=== PATIENT | female | born 1985 | race African-American/Black ===

== ENCOUNTER 2016-10-23 15:48 | Emergency (ER) | payer OTHER ==
[~2016-10-23] VITALS: Ht 157.5 cm; Wt 17.2 kg
[~2016-10-23 15:48] MED LIST: ACETAMINOPHEN325 M1; ACID CONTROL150 MG; ADVIL100 M2; ADVIL200 M2 PO; BACTRIM DS TAB1 EACH PO; COLACE 100 MG100 MG PO; EPIPEN 2-P0.3 MG/0.3 IM; FLONASE 0.05%50 MCG NASAL; HTN MED; IBUPROFEN 600600 M1 PO; IBUPROFEN 800800 M1 PO; IRON325 PO; KEFLEX500 MG PO; LANOLIN56 GM; LORTAB 5 MG/5001 TA1 PO; MACROBID 100 M100 M1 PO; MEDROL DOSPAK21 TAB PO; MUCINEX TA600 MG/TA2 PO; NORCO 5-325 TA1 EACH PO; PHENERGAN 25 MG25 M1; PHENERGAN 25 MG25 M1 PO; PRENATAL; TESSALON PERLE100 MG PO; TRI-SPRINTEC1 EACH PO; ULTRAM 50MG TAB50 MG PO; VENTOLIN HFA 1818 GM INH; XANAX 0.5 MG0.5 MG PO; XANAX1 MG PO; ZPAK PO
[2016-10-23] MEDS ORDERED: XANAX1 MG PO (16:20)
[2016-10-23] MEDS ORDERED: NORCO 10-325 T1 EACH PO (16:22)
[2016-10-23] MEDS ORDERED: PROPRANOLOL 20M20 M1 PO (16:23)
[2016-10-23] MEDS ORDERED: ALPRAZOLAM ER1 MG PO (16:24)
[2016-10-23 17:02] VITALS: BP 132/86
== END 2016-10-23 17:03 | disposition home or self-care (01) ==
LOC: ER 15:48
DX: F41.9 Anxiety disorder, unspecified (principal); Z76.0 Encounter for issue of repeat prescription; Z87.19 Personal history of other diseases of the digestive system; Z90.49 Acquired absence of other specified parts of digestive tract; Z88.1 Allergy status to other antibiotic agents; F17.210 Nicotine dependence, cigarettes, uncomplicated; F10.99 Alcohol use, unspecified with unspecified alcohol-induced disorder

== ENCOUNTER 2016-10-26 23:35 | Emergency (ER) | payer OTHER ==
[~2016-10-26] VITALS: Ht 157.5 cm; Wt 104.8 kg
[~2016-10-26 23:35] MED LIST changes: +ALPRAZOLAM ER1 MG PO; +NORCO 10-325 T1 EACH PO; +PROPRANOLOL 20M20 M1 PO
[2016-10-26 23:36] VITALS: BP 141/91
== END 2016-10-27 00:28 | disposition home or self-care (01) ==
LOC: ER 23:35
DX: F41.0 Panic disorder [episodic paroxysmal anxiety] (principal); Z87.19 Personal history of other diseases of the digestive system; Z90.49 Acquired absence of other specified parts of digestive tract; Z88.1 Allergy status to other antibiotic agents; F17.210 Nicotine dependence, cigarettes, uncomplicated; F10.99 Alcohol use, unspecified with unspecified alcohol-induced disorder

== ENCOUNTER 2016-11-17 22:00 | Emergency (ER) | payer OTHER ==
[~2016-11-17] VITALS: Ht 157.5 cm; Wt 104.3 kg
[2016-11-17] MEDS ORDERED: FLAGYL500 MG PO (22:52)
[2016-11-17 23:03] VITALS: BP 136/83
== END 2016-11-17 23:03 | disposition home or self-care (01) ==
LOC: ER 22:00
DX: F41.9 Anxiety disorder, unspecified (principal); F17.210 Nicotine dependence, cigarettes, uncomplicated; Z90.49 Acquired absence of other specified parts of digestive tract; Z98.890 Other specified postprocedural states; Z88.1 Allergy status to other antibiotic agents

== ENCOUNTER 2016-12-02 20:10 | Emergency (ER) | payer OTHER ==
[~2016-12-02] VITALS: Ht 157.5 cm; Wt 104.3 kg
[~2016-12-02 20:10] MED LIST changes: +FLAGYL500 MG PO
[2016-12-02] MEDS ORDERED: HYDROXYZINE HCL25 M1 PO (20:33)
[2016-12-02 20:56] VITALS: BP 150/100
== END 2016-12-02 20:56 | disposition home or self-care (01) ==
LOC: ER 20:10
DX: F41.9 Anxiety disorder, unspecified (principal); Z90.49 Acquired absence of other specified parts of digestive tract

== ENCOUNTER 2016-12-04 15:49 | Emergency (ER) | payer OTHER ==
[~2016-12-04] VITALS: Ht 157.5 cm; Wt 104.3 kg
[~2016-12-04 15:49] MED LIST changes: +HYDROXYZINE HCL25 M1 PO
[2016-12-04 16:51] VITALS: BP 129/78
== END 2016-12-04 16:54 | disposition home or self-care (01) ==
LOC: ER 15:49
DX: F41.9 Anxiety disorder, unspecified (principal); F10.99 Alcohol use, unspecified with unspecified alcohol-induced disorder; Z90.49 Acquired absence of other specified parts of digestive tract; Z87.19 Personal history of other diseases of the digestive system; Z88.1 Allergy status to other antibiotic agents; Z87.891 Personal history of nicotine dependence

== ENCOUNTER 2016-12-05 00:01 | Emergency (ER) | payer OTHER ==
[~2016-12-05] VITALS: Ht 157.5 cm; Wt 104.3 kg
[2016-12-05 00:10] VITALS: BP 151/108
== END 2016-12-05 00:41 | disposition home or self-care (01) ==
LOC: ER 00:01
DX: F41.9 Anxiety disorder, unspecified (principal); F10.99 Alcohol use, unspecified with unspecified alcohol-induced disorder; Z90.49 Acquired absence of other specified parts of digestive tract; Z87.19 Personal history of other diseases of the digestive system; Z88.1 Allergy status to other antibiotic agents; Z87.891 Personal history of nicotine dependence

== ENCOUNTER 2016-12-06 10:26 | Emergency (ER) | payer OTHER ==
[~2016-12-06] VITALS: Ht 157.5 cm; Wt 104.3 kg
[2016-12-06 12:20] VITALS: BP 142/92
== END 2016-12-06 12:23 | disposition home or self-care (01) ==
LOC: ER 10:26
DX: F41.9 Anxiety disorder, unspecified (principal); F10.99 Alcohol use, unspecified with unspecified alcohol-induced disorder; Z90.49 Acquired absence of other specified parts of digestive tract; Z98.890 Other specified postprocedural states; Z88.1 Allergy status to other antibiotic agents; Z87.891 Personal history of nicotine dependence

== ENCOUNTER 2016-12-25 15:03 | Emergency (ER) | payer OTHER ==
[~2016-12-25] VITALS: Ht 157.5 cm; Wt 108.9 kg
[2016-12-25 15:30] LABS: URINE BILIRUBIN NEGATIVE (Negative); URINE BLOOD 2+ (Negative); URINE COLOR YELLOW; URINE GLUCOSE-RANDOM* NEGATIVE (Negative); URINE KETONES NEGATIVE (Negative); URINE LEUKOCYTES-REFLEX NEGATIVE (Negative); URINE PROTEIN (DIPSTICK) NEGATIVE (Negative); URINE SPECIFIC GRAVITY 1.025 (1.003-1.035); URINE UROBILINOGEN 0.2 E.U./dl (0.2-1.0)
[2016-12-25 15:38] LABS: CASTS None Seen /LPF (None Seen); CRYSTALS None Seen /LPF (None Seen); SQUAMOUS 0-3 Few /LPF (0-3); URINE RBC 3-10 Few /HPF (0-2); URINE WBC-REFLEX None Seen /HPF (0-5)
[2016-12-25] MEDS ORDERED: XANAX1 MG PO (16:14)
[2016-12-25] MEDS ORDERED: CIPROFLOXACIN500 M1 PO (17:07)
[2016-12-25 17:24] VITALS: BP 130/81
[2016-12-27 20:06] LABS: CHLAMYDIA TRACHOMATIS-PCR Negative (Negative); NEISSERIA GONORRHEA-PCR Negative (Negative)
== END 2016-12-25 17:26 | disposition home or self-care (01) ==
LOC: ER 15:03
PROVIDERS: Emergency Medicine
DX: N39.0 Urinary tract infection, site not specified (principal); F41.9 Anxiety disorder, unspecified; F17.210 Nicotine dependence, cigarettes, uncomplicated; F10.99 Alcohol use, unspecified with unspecified alcohol-induced disorder; Z90.49 Acquired absence of other specified parts of digestive tract; Z87.19 Personal history of other diseases of the digestive system; Z88.1 Allergy status to other antibiotic agents

== ENCOUNTER 2017-02-20 10:06 | Emergency (ER) | payer OTHER ==
[~2017-02-20] VITALS: Ht 157.5 cm; Wt 106.1 kg
[~2017-02-20 10:06] MED LIST changes: +CIPROFLOXACIN500 M1 PO
[2017-02-20 10:15] VITALS: BP 151/100
[2017-02-20] MEDS ORDERED: HYDROCODONE-AP1 EAC6 PO (11:21)
[2017-02-20] MEDS ORDERED: SENOKOT-S1 TA1 PO (11:23)
[2017-02-20] MEDS ORDERED: PENICILLIN V P500 MG PO (11:33)
== END 2017-02-20 11:44 | disposition home or self-care (01) ==
LOC: ER 10:06
DX: S02.5XXA Fracture of tooth (traumatic), initial encounter for closed fracture (principal); M25.511 Pain in right shoulder; F41.9 Anxiety disorder, unspecified; G40.909 Epilepsy, unspecified, not intractable, without status epilepticus; Z98.890 Other specified postprocedural states; Z87.19 Personal history of other diseases of the digestive system; F17.210 Nicotine dependence, cigarettes, uncomplicated; F10.99 Alcohol use, unspecified with unspecified alcohol-induced disorder; F12.10 Cannabis abuse, uncomplicated; Z88.1 Allergy status to other antibiotic agents; Y04.0XXA Assault by unarmed brawl or fight, initial encounter; Y93.89 Activity, other specified; Y92.89 Other specified places as the place of occurrence of the external cause; Y99.8 Other external cause status

== ENCOUNTER 2017-03-06 22:11 | Emergency (ER) | payer OTHER ==
[~2017-03-06] VITALS: Ht 157.5 cm; Wt 104.3 kg
[~2017-03-06 22:11] MED LIST changes: +HYDROCODONE-AP1 EAC6 PO; +PENICILLIN V P500 MG PO; +SENOKOT-S1 TA1 PO
[2017-03-06 23:25] VITALS: BP 158/99
[2017-03-06 23:42] LABS: ABSOLUTE NEUTROPHILS 5.4 thou/uL (1.4-8.2); BASOPHILS 0.5 % (0.0-2.0); EOSINOPHILS 8.3 % (0.0-3.0); HEMATOCRIT 40.2 % (37.0-47.0); HEMOGLOBIN 13.4 gm/dL (12.0-15.0); LYMPHOCYTES 26.3 % (24.0-44.0); MCH 28.6 pg (26.0-34.0); MCHC 33.3 g/dL (28.0-37.0); MCV 85.9 fL (80.0-100.0); MONOCYTES 6.2 % (1.0-8.0); PLATELET COUNT 219 thou/uL (150-400); POLYS 58.7 % (36.0-66.0); RBC 4.69 mil/uL (4.20-5.00); RDW 14.1 % (10.5-14.5); WBC 9.2 thou/uL (4.0-11.0)
[2017-03-06 23:43] LABS: MANUAL DIFF NO
[2017-03-07] MEDS ORDERED: VENTOLIN HFA 1818 GM INH (00:01)
[2017-03-07] MEDS ORDERED: PREDNISONE 20 M20 MG PO (00:01)
[2017-03-07] MEDS ORDERED: TESSALON PERLE100 MG PO (00:01)
== END 2017-03-07 00:08 | disposition home or self-care (01) ==
LOC: ER 22:11
PROVIDERS: Nurse Practitioner
DX: J06.9 Acute upper respiratory infection, unspecified (principal); F41.9 Anxiety disorder, unspecified; G40.909 Epilepsy, unspecified, not intractable, without status epilepticus; F17.210 Nicotine dependence, cigarettes, uncomplicated; F10.99 Alcohol use, unspecified with unspecified alcohol-induced disorder; Z87.19 Personal history of other diseases of the digestive system; Z98.890 Other specified postprocedural states; Z88.1 Allergy status to other antibiotic agents

== ENCOUNTER 2017-03-31 11:11 | Emergency (ER) | payer OTHER ==
[~2017-03-31] VITALS: Ht 157.5 cm; Wt 102.1 kg
[~2017-03-31 11:11] MED LIST changes: +PREDNISONE 20 M20 MG PO
[2017-03-31 11:12] VITALS: BP 131/100
[2017-03-31] MEDS ORDERED: BLOOD PRESSURE MED PO (11:31)
[2017-04-01] MEDS ORDERED: VISTARIL 25 MG25 M1 PO (13:40)
== END 2017-03-31 11:44 | disposition home or self-care (01) ==
LOC: ER 11:11
DX: F41.9 Anxiety disorder, unspecified (principal); F17.210 Nicotine dependence, cigarettes, uncomplicated; F10.99 Alcohol use, unspecified with unspecified alcohol-induced disorder; Z88.2 Allergy status to sulfonamides

== ENCOUNTER 2017-04-01 13:20 | Emergency (ER) | payer OTHER ==
[~2017-04-01] VITALS: Ht 157.5 cm; Wt 102.1 kg
[~2017-04-01 13:20] MED LIST changes: +BLOOD PRESSURE MED PO
[2017-04-01] MEDS ORDERED: VISTARIL 25 MG25 M1 PO (13:40)
[2017-04-01 13:53] VITALS: BP 170/130
== END 2017-04-01 13:54 | disposition home or self-care (01) ==
LOC: ER 13:20
DX: F41.9 Anxiety disorder, unspecified (principal); G40.909 Epilepsy, unspecified, not intractable, without status epilepticus; F17.210 Nicotine dependence, cigarettes, uncomplicated; F10.99 Alcohol use, unspecified with unspecified alcohol-induced disorder; Z88.1 Allergy status to other antibiotic agents; Z98.890 Other specified postprocedural states; Z87.19 Personal history of other diseases of the digestive system

== ENCOUNTER 2017-08-03 18:47 | Emergency (ER) | payer OTHER ==
[~2017-08-03] VITALS: Ht 157.5 cm; Wt 102.1 kg
[~2017-08-03 18:47] MED LIST changes: +PROPRANOLOL 1010 MG PO; +VISTARIL 25 MG25 M1 PO
[2017-08-03] MEDS ORDERED: TESSALON PERLE100 MG PO (20:12)
[2017-08-03] MEDS ORDERED: MUCINEX D TABL1 EAC1 PO (20:13)
== END 2017-08-03 20:22 | disposition home or self-care (01) ==
LOC: ER 18:47
DX: J06.9 Acute upper respiratory infection, unspecified (principal); F41.9 Anxiety disorder, unspecified; Z90.49 Acquired absence of other specified parts of digestive tract; Z88.1 Allergy status to other antibiotic agents

== ENCOUNTER 2018-01-14 18:10 | Emergency (ER) | payer OTHER ==
[~2018-01-14] VITALS: Ht 157.5 cm; Wt 101.6 kg
[~2018-01-14 18:10] MED LIST changes: +MUCINEX D TABL1 EAC1 PO
[2018-01-14] MEDS ORDERED: NORCO 10-325 T1 EACH PO (18:26)
[2018-01-14] MEDS ORDERED: NAPROSYN500 MG PO (19:49)
[2018-01-14] MEDS ORDERED: HYDROCODONE-AP1 EAC6 PO (19:49)
[2018-01-14 20:20] VITALS: BP 163/114
== END 2018-01-14 20:21 | disposition home or self-care (01) ==
LOC: ER 18:10
DX: S00.83XA Contusion of other part of head, initial encounter (principal); S80.212A Abrasion, left knee, initial encounter; S80.211A Abrasion, right knee, initial encounter; H11.31 Conjunctival hemorrhage, right eye; F41.9 Anxiety disorder, unspecified; Z88.8 Allergy status to other drugs, medicaments and biological substances; Z88.2 Allergy status to sulfonamides; Z90.49 Acquired absence of other specified parts of digestive tract; Z98.890 Other specified postprocedural states; Y04.2XXA Assault by strike against or bumped into by another person, initial encounter; Y93.89 Activity, other specified; Y92.89 Other specified places as the place of occurrence of the external cause; Y99.8 Other external cause status

== ENCOUNTER 2018-04-08 15:37 | Emergency (ER) | payer OTHER ==
[~2018-04-08] VITALS: Ht 157.5 cm; Wt 101.6 kg
[~2018-04-08 15:37] MED LIST changes: +NAPROSYN500 MG PO
[2018-04-08 15:39] VITALS: BP 153/102
[2018-04-08] MEDS ORDERED: VENTOLIN HFA 1818 GM INH (15:43)
[2018-04-08] MEDS ORDERED: PROPRANOLOL 20M20 M1 PO (15:44)
[2018-04-08] MEDS ORDERED: HYDROCORTISONE30 G9 TOP (16:10)
[2018-04-08] MEDS ORDERED: CLOTRIMAZOLE 1%15 G1 TOP (16:10)
== END 2018-04-08 16:30 | disposition home or self-care (01) ==
LOC: ER 15:37
DX: B35.3 Tinea pedis (principal); F41.9 Anxiety disorder, unspecified; Z90.49 Acquired absence of other specified parts of digestive tract; Z98.890 Other specified postprocedural states; Z88.2 Allergy status to sulfonamides; Z88.8 Allergy status to other drugs, medicaments and biological substances